=== PATIENT | female | born 1965 | race African-American/Black ===

== ENCOUNTER 2018-04-19 06:12 | Emergency (ER) | payer MEDICAID ==
[~2018-04-19] VITALS: Ht 170.2 cm; Wt 68.0 kg
[2018-04-19 08:02] LABS: EOSINOPHILS % 4.1 % (0.0-5.0); HEMATOCRIT. 35.6 % (36.0-48.0); HEMOGLOBIN. 11.9 g/dL (12.0-16.0); MEAN CORPUSCULAR HEMOGLOBIN 29.3 pg (28.0-32.0); MEAN CORPUSCULAR VOLUME 87.5 fL (81.0-99.0); MEAN PLATELET VOLUME 10.1 fl (7.4-10.4); MONOCYTES % 9.4 % (2.0-8.0); NEUTROPHILS % 52.5 % (40.0-76.0); PLATELET 229 x1000/uL (130-400); RED BLOOD CELL COUNT 4.07 mill/uL (4.2-5.4); RED CELL DISTRIBUTION WIDTH 14.3 % (11.6-14.6)
[2018-04-19 08:05] LABS: CHLORIDE 108 mEq/L (98-107)
[2018-04-19 08:06] LABS: PROTHROMBIN TIME 9.9 sec (9.1-11.1)
[2018-04-19] MEDS ORDERED: ONDANSETRON 4MG ODT PO STA (08:08)
[2018-04-19] MEDS ORDERED: HYDROCODONE/ACETAMINOPHEN 5/325MG TABLET PO STA ×2 (08:08→10:37)
[2018-04-19 08:11] LABS: ETHANOL BLOOD < 10 mg/dL
[2018-04-19 10:57] LABS: CLARITY URINE CLEAR (CLEAR); COLOR URINE YELLOW (YELLOW); KETONES URINE NEGATIVE (NEGATIVE); LEUKOCYTE ESTERASE URINE NEGATIVE (NEGATIVE); NITRITE URINE NEGATIVE (NEGATIVE); OCCULT BLOOD URINE NEGATIVE (NEGATIVE); PH URINE 5.5 (4.5-8.0); PROTEIN URINE NEGATIVE (NEGATIVE); SPECIFIC GRAVITY URINE 1.016 (1.005-1.030); UROBILINOGEN URINE 0.2 E.U./dL (0.2-1.0)
[2018-04-19 11:16] LABS: *AMPHETAMINES SCREEN URINE NEGATIVE (NEGATIVE); *BARBITURATES SCREEN URINE NEGATIVE (NEGATIVE); *BENZODIAZEPINES SCREEN URINE NEGATIVE (NEGATIVE); *COCAINE SCREEN URINE NEGATIVE (NEGATIVE); METHADONE URINE SCREEN NEGATIVE (NEGATIVE); OPIATES URINE SCREEN NEGATIVE (NEGATIVE)
[2018-04-19 11:17] LABS: CANNABINOID URINE SCREEN NEGATIVE (NEGATIVE); PHENCYCLIDINE URINE SCREEN NEGATIVE (NEGATIVE)
[2018-04-19 11:53] VITALS: BP 114/70
== END 2018-04-19 11:53 | disposition home or self-care (01) ==
LOC: ER 06:12
DX: G44.89 Other headache syndrome (principal); M51.37 Other intervertebral disc degeneration, lumbosacral region; M79.1 Myalgia
CPT/HCPCS: 36415; 72100; 80053; 80305; 81003; 81025; 83690; 85025; 85610; 99285; G0482; Q0162; Z7610

== ENCOUNTER 2018-06-22 23:36 | Emergency (ER) | payer MEDICAID, OTHER ==
[~2018-06-22] VITALS: Ht 160 cm; Wt 65.9 kg
[2018-06-23] MEDS ORDERED: SODIUM CHLORIDE 0.9% 1,000 ML IV ONE (00:35)
[2018-06-23] MEDS ORDERED: ONDANSETRON HCL 4MG/2ML INJ IV STA (00:35)
[2018-06-23] MEDS ORDERED: KETOROLAC 30MG/ML VIAL IV STA (00:35)
[2018-06-23] MEDS ORDERED: PHENYTOIN SODIUM EXTENDED 100MG CAPSULE PO ONE (00:45)
[2018-06-23 01:08] LABS: BASOPHILS % 1.2 % (0.0-2.0); EOSINOPHILS % 3.7 % (0.0-5.0); HEMATOCRIT. 37.1 % (36.0-48.0); LYMPHOCYTES % 44.2 % (20.0-50.0); MEAN CORPUSCULAR HEMOGLOBIN 28.6 pg (28.0-32.0); MEAN CORPUSCULAR VOLUME 88.3 fL (81.0-99.0); MEAN PLATELET VOLUME 10.3 fl (7.4-10.4); MONOCYTES % 7.2 % (2.0-8.0); NEUTROPHILS % 43.7 % (40.0-76.0); PLATELET 217 x1000/uL (130-400); RED CELL DISTRIBUTION WIDTH 14.4 % (11.6-14.6)
[2018-06-23 01:14] LABS: CHLORIDE 110 mEq/L (98-107)
[2018-06-23 05:15] VITALS: BP 133/79
[2018-06-23] MEDS ORDERED: ACETAMINOPHEN 325MG TABLET PO ONE (05:30)
== END 2018-06-23 05:41 | disposition home or self-care (01) ==
LOC: ER 23:36
DX: G40.909 Epilepsy, unspecified, not intractable, without status epilepticus (principal); Z91.14 Patient's other noncompliance with medication regimen; F43.9 Reaction to severe stress, unspecified; I10 Essential (primary) hypertension
CPT/HCPCS: 36415; 80053; 85025; 96374; 96375; 99285; J1885; J2405; J7030